=== PATIENT | female | born 1980 ===

== ENCOUNTER 2018-02-22 16:51 | Emergency (ER) | payer MEDICAID ==
[~2018-02-22] VITALS: Ht 157.5 cm; Wt 64.0 kg
[2018-02-22] MEDS ORDERED: SODIUM CHLORIDE FLUSH 10ML SYR IVF ONE (17:30)
[2018-02-22] MEDS ORDERED: ONDANSETRON 2MG/ML, 2ML IVPush ONE (17:30)
[2018-02-22 17:37] LABS: BASOPHILS # (AUTO) 0.02 x10^3/uL (0-0.1); BASOPHILS % (AUTO) 0 % (0-1); EOSINOPHILS # (AUTO) 0.15 x10^3/uL (0-0.4); EOSINOPHILS % (AUTO) 3 % (1-7); LYMPHOCYTES % (AUTO) 22 % (22-44); MD NO; MEAN CORPUSCULAR HGB CONC 33.2 g/dL (32.4-35.8); MEAN CORPUSCULAR VOLUME 90.3 fL (80-100); MEAN PLATELET VOLUME 7.4 fL (7.4-10.4); MONOCYTES % (AUTO) 11 % (2-9); NEUTROPHILS # (AUTO) 3.39 x10^3/uL (1.8-6.8); NEUTROPHILS % (AUTO) 63 % (42-75); PLATELET COUNT 284 x10^3/uL (130-400); RED BLOOD COUNT 4.92 x10^6/uL (3.82-5.3); RED CELL DISTRIBUTION WIDTH 16.4 % (9.6-15.2)
[2018-02-22 17:46] LABS: ALANINE AMINOTRANSFERASE 28 U/L (12-78); ALBUMIN 3.4 g/dL (3.4-5.0); ANION GAP 6 mmol/L (5-15); CALCIUM 8.5 mg/dL (8.5-10.1); CHLORIDE 108 mmol/L (98-107); CREATININE 0.63 mg/dL (0.55-1.02)
[2018-02-22 17:47] LABS: ALKALINE PHOSPHATASE 79 U/L (45-117); BILIRUBIN,TOTAL 0.4 mg/dL (0.2-1.0); TOTAL PROTEIN 6.9 g/dL (6.4-8.2)
--- NOTE | 2018-02-22 17:58 | NUR ---
FILENET ARCHITECT: TO ROOM FROM LOBBY.
--- NOTE | 2018-02-22 18:18 | NUR ---
A&OX4, RESP EVEN & UNLABORED, SPEECH CLEAR, SKIN WNL. C/O EPIGASTRIC & SUPRAPUBIC PAIN - STARTED TUESDAY, N/V. DENIES DIARRHEA, CONSTIPATION. HAD ZOFRAN AT 1630 TODAY AT [facility]. LAST ORAL INTAKE: ORANGE WHILE IN ED ROOM. LMP: 3 WKS AGO. NO FLU SHOT THIS SEASON.
[2018-02-22] MEDS ORDERED: IRON (18:23)
[2018-02-22] MEDS ORDERED: MULTIVITAMIN (18:23)
[2018-02-22] MEDS ORDERED: VITAMIN D (18:23)
--- NOTE | 2018-02-22 18:31 | NUR ---
AMBULATORY TO & FROM ROOM BR W/OUT INCIDENT. VOIDED SCANT AMOUNT - INSUFFICIENT FOR TESTING.
[2018-02-22] MEDS ORDERED: MAALOX/HYOSCYAMINE/LIDOCAINE 45 ML BTL PO ONE (19:00)
[2018-02-22] MEDS ORDERED: ONDANSETRON ODT 4 MG PO ONE (19:00)
[2018-02-22 19:48] LABS: MICROSCOPIC NOT IND
[2018-02-22 19:51] LABS: CULTURE INDICATED? NO
[2018-02-22] MEDS ORDERED: MAALOX/HYOSCYAMINE/LIDOCAINE 45 ML BTL ONE (20:18)
--- NOTE | 2018-02-22 20:23 | NUR ---
PT REPORTS FEELING ANXIOUS. STATES "THE DOCTOR TALKED ABOUT PUTTING SOMETHING DOWN MY THROAT". INFORMED PT THAT I'M NOT AWARE OF A TUBE ORDER RIGHT NOW. GI COCKTAIL CONSUMED BY PT.
[2018-02-22 21:38] VITALS: BP 142/63
== END 2018-02-22 21:40 | disposition home or self-care (01) ==
LOC: ED 18:52
DX: R10.13 Epigastric pain (principal); M79.18 Myalgia, other site; R11.0 Nausea
CPT/HCPCS: 36415; 76700; 80053; 81003; 83690; 84703; 85025; 99284; Q0162

== ENCOUNTER 2019-03-24 09:03 | Emergency (ER) | payer MEDICAID ==
[~2019-03-24] VITALS: Ht 157.5 cm; Wt 74.7 kg
[~2019-03-24 09:03] MED LIST: IRON; MULTIVITAMIN; VITAMIN D
[2019-03-24 09:15] VITALS: BP 153/85
[2019-03-24 09:50] LABS: CULTURE INDICATED? YES; MICROSCOPIC INDICATED
[2019-03-24 10:12] LABS: BASOPHILS # (AUTO) 0.04 x10^3/uL (0-0.1); BASOPHILS % (AUTO) 1 % (0-1); EOSINOPHILS # (AUTO) 0.26 x10^3/uL (0-0.4); EOSINOPHILS % (AUTO) 4 % (1-7); LYMPHOCYTES # (AUTO) 1.18 x10^3/uL (1-3.4); LYMPHOCYTES % (AUTO) 20 % (22-44); MD NO; MEAN CORPUSCULAR HEMOGLOBIN 26.6 pg (27.0-34.8); MEAN CORPUSCULAR VOLUME 83.4 fL (80-100); MEAN PLATELET VOLUME 7.5 fL (7.4-10.4); MONOCYTES # (AUTO) 0.36 x10^3/uL (0.2-0.8); MONOCYTES % (AUTO) 6 % (2-9); NEUTROPHILS # (AUTO) 4.09 x10^3/uL (1.8-6.8); NEUTROPHILS % (AUTO) 69 % (42-75); PLATELET COUNT 405 x10^3/uL (130-400); RED BLOOD COUNT 4.63 x10^6/uL (3.82-5.3); RED CELL DISTRIBUTION WIDTH 17.9 % (9.6-15.2)
[2019-03-24 10:20] LABS: ALBUMIN 3.5 g/dL (3.4-5.0); ANION GAP 8 mmol/L (5-15); CALCIUM 8.9 mg/dL (8.5-10.1); CHLORIDE 109 mmol/L (98-107); CREATININE 0.79 mg/dL (0.55-1.02)
--- NOTE | 2019-03-24 10:28 | NUR ---
news department intern: Pt ambulatory to ED room 04 from channing in NAD at this time
--- NOTE | 2019-03-24 10:52 | NUR ---
PT PLACED FOR RECHECK, NAD NOTED AT THIS TIME.
[2019-03-24] MEDS ORDERED: HYDROcodone/APAP 5/325 TABLET PO ONE (12:00)
[2019-03-24] MEDS ORDERED: HYDROcodone/APAP 5/325 TABLET ONE (12:02)
== END 2019-03-24 12:20 | disposition home or self-care (01) ==
LOC: ED 11:45
DX: N30.00 Acute cystitis without hematuria (principal)
CPT/HCPCS: 36415; 80048; 81001; 82040; 84703; 85025; 87077; 87086; 87186; 99283